=== PATIENT | male | born 1935 | race Caucasian/White ===

== ENCOUNTER 2019-12-24 17:13 | Emergency (ER) | payer MEDICARE, MEDICAID, SELFPAY ==
[2019-12-24] VITALS (16 sets, daily range): BP systolic 122–175; BP diastolic 32–97; PULSE 66–109; RESP 16–20; TEMP 36.5–36.6; O2SAT 94–100; BMI 22.1
--- NOTE | 2019-12-24 17:28 | ED_ITS ---
HPI - Altered Mental Status General Chief Complaint: Altered Mental Status Stated Complaint: AMS Time Seen by Provider: 12/24/19 17:27 Source: EMS Mode of arrival: EMS Limitations: altered mental status History of Present Illness HPI narrative: patient brought by EMS for increased confusion and combativeness apparently patient lives alone and [employer] people found him increased confused in unkept condition at home, details not available no signs of injury/trauma MD complaint: altered mental status Related Data Home Medications Medication Instructions Recorded Confirmed doxazosin 2 mg PO BEDTIME 12/24/19 12/24/19 levothyroxine 50 mcg PO DAILY 12/24/19 12/24/19 lisinopril 5 mg PO DAILY 12/24/19 12/24/19 metoprolol tartrate 25 mg PO BID 12/24/19 12/24/19 Allergies Allergy/AdvReac Type Severity Reaction Status Date / Time No Known Allergies Allergy Verified 12/24/19 17:26 Review of Systems Review of Systems: Yes Unobtainable due to mental status PMFSH Past Medical History Medical History HTN (hypertension) Social History Social History Alcohol intake: unknown Smoking Status: Unknown if ever smoked Use of substances other than those prescribed or required for medical reasons: Unknown Advance Directives: No (AMS) Advance Directives Information Provided: No (AMS) Physical Exam Vital Signs: Vital Signs: Vital Signs Temp Pulse Resp BP Pulse Ox 12/24/19 22:04 70 16 95 12/24/19 22:00 69 16 122/58 L 95 12/24/19 21:49 67 16 124/57 L 96 12/24/19 21:34 66 16 127/32 L 96 12/24/19 21:19 97.9 F 74 20 148/76 H 96 12/24/19 21:04 97.7 F 76 16 168/78 H 97 12/24/19 21:00 85 16 129/75 95 12/24/19 20:45 90 16 147/81 H 96 12/24/19 20:30 91 16 12/24/19 20:22 77 16 127/67 97 12/24/19 20:15 16 12/24/19 20:05 109 H 18 151/78 H 12/24/19 20:00 18 12/24/19 19:45 99 18 157/82 H 94 12/24/19 18:17 87 19 173/86 H 97 12/24/19 17:18 97.9 F 85 18 175/97 H 100 Body Mass Index 22.1 Appearance: Alert. Oriented X2 No acute distress. confused at baseline asking to go back to his apartment Eyes: Pupils equal, round and reactive to light. ENT: Pharynx normal. Neck: Normal inspection. Neck supple. CVS: Normal heart rate and rhythm. Pulses normal. Respiratory: No respiratory distress. Breath sounds normal. Abdomen: Soft and nontender. Skin: Skin warm and dry. Normal skin color. Normal skin turgor. Extremities: No lower extremity edema. Good range of movement Neuro: Oriented X 2. No motor deficit. No sensory deficit. no pronator drift Course Course Course Narrative: case discussed with patient's sister Lissy Weber [phone] who lives in [place] and is health proxy. She has not seen him for last 10 years. According to her patient does live alone and has a history of schizophrenia and psychosis and feels that he needs to go to assiting living place/ intermediate 0050 : patient is sleeping at this time signed out to Dr. Smith plan to place in intermediate in morning MDM - Altered Mental Status Differential Diagnosis Differential diagnosis: Likely altered mental status, dementia, hypoglycemia, hyponatremia, renal failure and seizures Lab Data Result diagrams: 12/24/19 18:14 12/24/19 18:14 Labs: Lab Results 12/24/19 12/24/19 12/24/19 Range/Units 18:14 18:14 19:15 WBC 7.1 (4.8-10.8) X10*3/uL RBC 3.74 L (4.60-5.80) X10*6/uL Hgb 11.6 L (14.0-18.0) g/dl Hct 34.6 L (42-52) % MCV 92.5 (80-98) fL MCH 31.0 (27.0-33.0) pg MCHC 33.5 (31.0-36.0) g/dl RDW 12.6 (11.0-16.0) % Plt Count 167 (160-400) X10*3/uL MPV 9.5 (9.4-12.4) fL Immature Gran % (Auto) 0.8 H (0.0-0.4) % Neut % (Auto) 66.7 (45-73) % Lymph % (Auto) 13.6 L (20-40) % [place] % (Auto) 11.8 H (2-11) % Eos % (Auto) 6.7 H (0-4) % Baso % (Auto) 0.4 (0-2) % Lymph # (Auto) 1.0 L (1.2-4.9) X10*3/uL [place] # (Auto) 0.8 (0.1-1.2) X10*3/uL Eos # (Auto) 0.5 H (0.0-0.4) X10*3/uL Baso # (Auto) 0.0 (0.0-0.2) X10*3/uL Abs Immat Gran (auto) 0.06 H (0.00-0.03) X10*3/uL Absolute Neuts (auto) 4.8 (2.0-8.3) X10*3/uL Absolute Nucleated RBC 0.000 (0.0-0.012) X10*3/uL Nucleated RBC % (auto) 0.0 (0.0-0.2) /100WBC Sodium 133 L (135-145) mmol/L Potassium 4.7 (3.3-5.1) mmol/l Chloride 100 (96-108) mmol/L Carbon Dioxide 26 (22-29) mmol/L Anion Gap 12 (12-20) BUN 32 H (9-16) mg/dL Creatinine 0.77 (0.5-1.4) mg/dL Estim Creat Clear Calc 76.0 Estimated GFR > 60 Random Glucose 95 (60-115) mg/dL Calcium 8.9 (8.4-10.2) mg/dL Urine Color YELLOW Urine Appearance CLEAR Urine pH 6.5 (5.0-8.0) Ur Specific [place] 1.015 (1.005-1.025) Urine Protein NEG (NEG-TRACE) MG/DL Urine Glucose (UA) NEG (NEG) MG/DL Urine Ketones NEG (NEG) MG/DL Urine Blood 1+ H (NEG) Urine Nitrite NEG (NEG) Ur Leukocyte Esterase NEG (NEG) Urine RBC 0-2 (0) /HPF Urine WBC 0 (0-4) /HPF Ur Squamous Epith Cells 1+ /LPF Urine Crystals TRACE /LPF Urine Bacteria NONE /LPF Coronavirus (PCR) (Negative) 12/24/19 Range/Units 20:10 WBC (4.8-10.8) X10*3/uL RBC (4.60-5.80) X10*6/uL Hgb (14.0-18.0) g/dl Hct (42-52) % MCV (80-98) fL MCH (27.0-33.0) pg MCHC (31.0-36.0) g/dl RDW (11.0-16.0) % Plt Count (160-400) X10*3/uL MPV (9.4-12.4) fL Immature Gran % (Auto) (0.0-0.4) % Neut % (Auto) (45-73) % Lymph % (Auto) (20-40) % [place] % (Auto) (2-11) % Eos % (Auto) (0-4) % Baso % (Auto) (0-2) % Lymph # (Auto) (1.2-4.9) X10*3/uL [place] # (Auto) (0.1-1.2) X10*3/uL Eos # (Auto) (0.0-0.4) X10*3/uL Baso # (Auto) (0.0-0.2) X10*3/uL Abs Immat Gran (auto) (0.00-0.03) X10*3/uL Absolute Neuts (auto) (2.0-8.3) X10*3/uL Absolute Nucleated RBC (0.0-0.012) X10*3/uL Nucleated RBC % (auto) (0.0-0.2) /100WBC Sodium (135-145) mmol/L Potassium (3.3-5.1) mmol/l Chloride (96-108) mmol/L Carbon Dioxide (22-29) mmol/L Anion Gap (12-20) BUN (9-16) mg/dL Creatinine (0.5-1.4) mg/dL Estim Creat Clear Calc Estimated GFR Random Glucose (60-115) mg/dL Calcium (8.4-10.2) mg/dL Urine Color Urine Appearance Urine pH (5.0-8.0) Ur Specific [place] (1.005-1.025) Urine Protein (NEG-TRACE) MG/DL Urine Glucose (UA) (NEG) MG/DL Urine Ketones (NEG) MG/DL Urine Blood (NEG) Urine Nitrite (NEG) Ur Leukocyte Esterase (NEG) Urine RBC (0) /HPF Urine WBC (0-4) /HPF Ur Squamous Epith Cells /LPF Urine Crystals /LPF Urine Bacteria /LPF Coronavirus (PCR) NEGATIVE (Negative) Discharge Plan Discharge Prescriptions: No Action levothyroxine 50 mcg tablet 50 mcg PO DAILY RF: 0 lisinopril 5 mg tablet 5 mg PO DAILY RF: 0 doxazosin 2 mg tablet 2 mg PO BEDTIME RF: 0 metoprolol tartrate 25 mg tablet 25 mg PO BID RF: 0
--- NOTE | 2019-12-24 17:34 | ECG_ITS ---
Test Reason : AMS Blood Pressure : / mmHG Vent. Rate : 080 BPM Atrial Rate : 080 BPM P-R Int : 216 ms QRS Dur : 100 ms QT Int : 378 ms P-R-T Axes : 090 011 056 degrees QTc Int : 435 ms Sinus rhythm with sinus arrhythmia with 1st degree A-V block Incomplete right bundle branch block Borderline ECG No previous ECGs available Referred By: Alfonso Membreno Electronically Signed By:PARMJIT COTTO MD
--- NOTE | 2019-12-24 17:35 | XR_ITS ---
EXAMINATION: XR CHEST CLINICAL INFORMATION: Altered mental status COMPARISON: None TECHNIQUE: Frontal view of the chest was obtained. FINDINGS: Cardiac silhouette is mildly enlarged. Patient is status post valvular replacement. The lungs are adequately aerated. There is prominence of the central pulmonary vasculature and diffuse coarsening of the interstitial markings, nonspecific. Subtle opacity of the lateral left lung base, nonspecific. No pleural effusion. No pneumothorax. XR/XR chest 1V IMPRESSION: There is prominence of the central pulmonary vasculature and diffuse coarsening of the interstitial markings which although nonspecific are likely related to chronic changes. Unfortunately there is no prior imaging available for comparison. Subtle opacity of the lateral left lung base is nonspecific and may represent atelectasis versus pulmonary nodule. This can be further evaluated with cross-sectional imaging as clinically indicated.
--- NOTE | 2019-12-24 17:35 | CT_ITS ---
EXAMINATION: NONCONTRAST HEAD CT INDICATION INFORMATION: Altered mental status COMPARISON: None TECHNIQUE: Noncontrast CT of the head was performed from the skull base to the vertex. Soft tissue and bony algorithms were evaluated. Coronal and sagittal images were created at the technologist workstation. This CT examination was performed using dose optimization techniques as appropriate, variously including the following: *Automated exposure control *Adjustment of mA and/or kV according to patient size (this includes techniques or standardized protocols for targeted exams where dose is matched to indication/reason for exam; i.e. extremities or head) *Use of iterative reconstruction technique DLP: 855 mGy-cm FINDINGS: There is no evidence of acute intracranial hemorrhage or territorial infarction. No abnormal mass effect or midline shift is appreciated. Mcghee-white differentiation is well preserved. No extra-axial fluid collections. The ventricular system and cortical sulci are prominent, most consistent with volume loss. Mild cerebellar volume loss is also appreciated. There are areas of low density in the periventricular and subcortical white matter, most consistent with sequelae of microvascular ischemic change. The osseous structures and soft tissues are normal. There are calcifications of the cavernous internal carotid arteries. The visualized paranasal sinuses and mastoid air cells are well aerated. CT/CT head/brain wo con IMPRESSION: -No CT evidence for acute intracranial abnormality. -Microvascular ischemic changes. -Prominence of the ventricular system and cortical sulci, most suggestive of volume loss. Dilatation of the ventricles may be slightly out of proportion to the cortical sulci prominence raising the possibility for normal pressure hydrocephalus. Clinical correlation is recommended.
[2019-12-24] MEDS: 0.9 % Sodium Chloride 1,000 ML 999 ML IVCONT (18:16)
[2019-12-24 18:18] LABS: MANUAL DIFF FLAG NO
--- NOTE | 2019-12-24 18:23 | PC.NURSE ---
Pt continuously attempting to get oob, pulling at medical devices, asking to go home but is easily redirectable. sitter placed at bedside for safety
[2019-12-24 18:24] LABS: Basophils Percent Auto 0.4 % (0-2); Eosinophils Absolute Auto 0.5 X10*3/uL (0.0-0.4); Eosinophils Percent Auto 6.7 % (0-4); Hematocrit 34.6 % (42-52); Hemoglobin 11.6 g/dl (14.0-18.0); Imm Gran Abs Auto 0.06 X10*3/uL (0.00-0.03); Imm Gran Pct Auto 0.8 % (0.0-0.4); Lymphocytes Percent Auto 13.6 % (20-40); Mean Corpuscular HGB Conc 33.5 g/dl (31.0-36.0); Mean Corpuscular Volume 92.5 fL (80-98); Mean Platelet Volume 9.5 fL (9.4-12.4); Monocytes Absolute Auto 0.8 X10*3/uL (0.1-1.2); Monocytes Percent Auto 11.8 % (2-11); Neutrophils Absolute Auto 4.8 X10*3/uL (2.0-8.3); Neutrophils Percent Auto 66.7 % (45-73); Platelet Count 167 X10*3/uL (160-400); Red Blood Count 3.74 X10*6/uL (4.60-5.80); Red Cell Distribution Width 12.6 % (11.0-16.0); White Blood Count 7.1 X10*3/uL (4.8-10.8)
[2019-12-24 18:58] LABS: Anion Gap 12 (12-20); Blood Urea Nitrogen 32 mg/dL (9-16); Calcium 8.9 mg/dL (8.4-10.2); Carbon Dioxide 26 mmol/L (22-29); Chloride 100 mmol/L (96-108); Estimated Glomerular Filt Rate > 60; Glucose Random 95 mg/dL (60-115); Potassium 4.7 mmol/l (3.3-5.1); Sodium 133 mmol/L (135-145)
[2019-12-24] MEDS: LORazepam 1 MG TABLET PO (19:17)
--- NOTE | 2019-12-24 19:19 | PC.NURSE ---
IV removed per physician. Pt eating pudding at this time. voided via urinal. Ativan administered per order. Plan is for case management in morning
[2019-12-24 19:23] LABS: Appearance Urine CLEAR; Color Urine YELLOW; Glucose Urine UA NEG (NEG); Leukocyte Esterase Urine NEG (NEG); Nitrite Urine NEG (NEG); PH 6.5 (5.0-8.0); Specific Gravity - Urine 1.015 (1.005-1.025); Urine Blood 1+ (NEG); Urine Ketones NEG (NEG); Urine Protein NEG (NEG-TRACE)
[2019-12-24 19:28] LABS: RBC Urine 0-2 /HPF (0); Squamous Epithelial Cell Urine 1+ /LPF; Urine Talc Crystals TRACE /LPF; WBC Urine 0 /HPF (0-4)
[2019-12-24] MEDS: diphenhydrAMINE HCL 50 MG/ML VIAL IM (19:39)
[2019-12-24] MEDS: Haloperidol Lactate 5 MG/ML VIAL 2 MG IM (19:58)
[2019-12-24 21:20] LABS: SARS COV2 PCR INHOUSE NEGATIVE (Negative)
--- NOTE | 2019-12-24 23:22 | PC.NURSE ---
pt in bed, sleeping, given im injection around 8 pm tonight for the start of a combative situation
[2019-12-25] VITALS (13 sets, daily range): BP systolic 101–156; BP diastolic 58–77; PULSE 58–70; RESP 14–18; TEMP 36.5–37.2; O2SAT 95–99
--- NOTE | 2019-12-25 02:16 | PC.NURSE ---
pt gievn snack and drink. pt vitals wnl. pt urinated about 400 cc of urine. pt then threw drinks and food at nurses.
--- NOTE | 2019-12-25 04:48 | PC.NURSE ---
pt up trying to walk around and put clothes on, at this time hard to redirect. being combative. changed to hospital bed for comfort, given juice. nad noted otherwise
--- NOTE | 2019-12-25 06:44 | PC.NURSE ---
pt got up and walked to bathroom with one assist. vitals wnl.
[2019-12-25] MEDS: Levothyroxine Sodium 50 MCG TABLET PO (08:58)
[2019-12-25] MEDS: Metoprolol Tartrate 25 MG TABLET PO (08:58)
[2019-12-25] MEDS: lisinopriL 5 MG TABLET PO (08:59)
--- NOTE | 2019-12-25 10:00 | MHC.CM.ED ---
Received consult. EMS called by [facility] stating confusion and agitation, house was unkept. Transported to ED last evening. Given haldol IM on 12/23 at 1952 and po ativan on 12/23 at 1859 for increasing agitation, unable to re-direct. Spoke with Cindy, talent development consultant at [facility] ext. [phone]). She states that pt. has been declining cognitively and physically since July. Has become more forgetful, has daily incontinence and has begun using a cane. States normally he is very neat and clean. Only has [facility] for services; has declined homemaker services for past year. Received last office visit and medication update from PCP Dr. Mesfin Amin ([phone]). Noted to have regular office visits and manages medications. Physical Therapy consult ordered due to cane use at home and to assess for safety. HCP Lissy Weber(sister) [phone]. Per record has not seen brother in 10 years. Support person per [facility] Rev. Tea Elizabeth [phone]. Attempted to meet with pt., but unable to wake, despite calling his name and gentle touch. Will try to meet when more awake. Awaiting PT evaluation. Updated MD Smith regarding conversation with Cindy at [facility]. Will continue to follow for D/C needs.
--- NOTE | 2019-12-25 13:27 | MHC.CM.ED ---
Spoke with sister and HCP, Lissy Weber ([phone]). Aware of brother being in ED. Spoke with MD yesterday. Per Lissy, pt. has long history of behaviors dating back to 1973, when he was hospitalized at [facility] in [facility] for paranoid issues. Per Lissy, this episodes have occurred throughout pt's adult life, but he was only hospitalized once. Pt. has not held a regular job, but has a graduate degree and is very intelligent . 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 Pt. lived with his parents from 1976 until 2011, when he moved into his current residence. Lissy tells me her brother could not care for the home after her parents , and it fell into disrepair. Neighbors called the police about the living situation. Lissy feels her brother would be best cared for in a [place], as she fears he is unable to care for himself. Lissy made aware that would be looking for a safe D/C for her brother. Will broadcast via [facility] for STR/LTC. Will update Lissy tomorrow and review options with her. Lissy agreeable to this plan. Will continue to monitor for D/C needs.
--- NOTE | 2019-12-25 13:39 | MHC.CM.ED ---
Broadcasted within 20 mile radius for STR/LTC. Met with patient. Easily awakened. Would only answer YES or NO to direct questions. Pt is not oriented to place or time. When asked if patient feels he can care for himself, he said no. Unsure if patient has an understanding of questions. Spoke with Albert MAYORGA, who has had the same interactions with this patient.
--- NOTE | 2019-12-25 14:40 | MHC.CM.ED ---
Received call from Brittnee Spring ([phone]. [phone]) at [facility] regarding self neglect report on Pt. Reviewed pt. stay in ED and our concerns that he is not safe to return home at this time. Aware of IM Tiffanie and Broadcast[facility] within 20 miles for STR/LTC, with probable LTC placement. Elder services requests notifcation of D/C plan prior to discharge to facility. No beds available at this point.
--- NOTE | 2019-12-25 16:29 | MHC.CM.ED ---
No bed offers have been made. Referral broadcasted within 40 miles of patient's address. Continue to monitor for d/c needs.
[2019-12-26] VITALS (13 sets, daily range): BP systolic 135–187; BP diastolic 71–113; PULSE 58–83; RESP 15–16; TEMP 36.4–36.9; O2SAT 95–99
[2019-12-26] MEDS: lisinopriL 5 MG TABLET PO (09:39)
[2019-12-26] MEDS: Levothyroxine Sodium 50 MCG TABLET PO (09:40)
[2019-12-26] MEDS: Metoprolol Tartrate 25 MG TABLET PO ×2 (09:40→20:16)
--- NOTE | 2019-12-26 09:46 | MHC.CM.ED ---
Patient remains in ER. No behavior issues overnight. Clinical updates sent to all facilities still following patient. Continue to monitor for d/c needs.
--- NOTE | 2019-12-26 10:25 | MHC.CM.ED ---
Patient has a history of OCD, depression and paranoia. Will need abbrevated PASRR screen. Leval 1 PASRR screen completed and faxed to [facility]. Continue to monitor for d/c needs.
--- NOTE | 2019-12-26 14:51 | MHC.CM.ED ---
Spoke with patient's sister/HCP, Lissy via telephone. Explained placement has not been obtained. Anticipate patient will be in the ER over the weekend. Lissy verbalized understanding. Continue to monitor for d/c needs.
--- NOTE | 2019-12-26 18:31 | PC.NURSE ---
PATIENT GIVEN DINNER AND PATIENT EATING DINNER WITHOUT ISSUE
[2019-12-26] MEDS: OLANZapine 5 MG TABLET PO (20:17)
[2019-12-26] MEDS: Doxazosin Mesylate 2 MG TABLET PO (22:16)
[2019-12-27] VITALS (13 sets, daily range): BP systolic 103–156; BP diastolic 66–76; PULSE 53–70; RESP 15–20; TEMP 36.8–36.9; O2SAT 96–99
--- NOTE | 2019-12-27 06:09 | PC.NURSE ---
PATIENT HAD A DECENT NIGHT. PATIENT TOOK ALL OF HIS MEDICATION WITHOUT ANY ISSUE. RESPIRATORY RATE EQUAL AND UNLABORED. SKIN WPD. PATIENT IS CASE MANAGEMENT.
[2019-12-27] MEDS: lisinopriL 5 MG TABLET PO (09:31)
[2019-12-27] MEDS: Metoprolol Tartrate 25 MG TABLET PO ×2 (09:31→20:46)
[2019-12-27] MEDS: Levothyroxine Sodium 50 MCG TABLET PO (09:32)
--- NOTE | 2019-12-27 18:15 | PC.NURSE ---
patient up and eating dinner. beforehand patient brought to bedside commode. offers no complaints at this time.
[2019-12-27] MEDS: OLANZapine 5 MG TABLET PO (18:27)
[2019-12-27] MEDS: Doxazosin Mesylate 2 MG TABLET PO (20:47)
[2019-12-28 06:14] VITALS: BP 108/74; PULSE 61; RESP 16; TEMP 36.4; O2SAT 94
--- NOTE | 2019-12-28 06:48 | PC.NURSE ---
report taken from kimberley flores pt appears to be sleeping in bed, rr even/unlabored. awaiting breakfast. 1:[address] for safety[address] aj.
[2019-12-28 09:07] VITALS: BP 103/67; PULSE 67
[2019-12-28] MEDS: Metoprolol Tartrate 25 MG TABLET PO ×2 (09:07→21:12)
[2019-12-28] MEDS: Levothyroxine Sodium 50 MCG TABLET PO (09:07)
[2019-12-28 09:08] VITALS: BP 103/67; PULSE 67
[2019-12-28] MEDS: lisinopriL 5 MG TABLET PO (09:08)
--- NOTE | 2019-12-28 15:14 | PC.NURSE ---
pt continues to rest in bed, rr even unlabored. no wandering out of bed today. wctm for dc needs.
[2019-12-28] MEDS: OLANZapine 5 MG TABLET PO (17:11)
[2019-12-28 19:43] VITALS: BP 111/61; PULSE 73; RESP 16; TEMP 36.5; O2SAT 98
[2019-12-28 20:04] VITALS: BP 108/60; PULSE 72; RESP 16; TEMP 36.4; O2SAT 97
--- NOTE | 2019-12-28 20:07 | PC.NURSE ---
pt awake and alert, ambulatory to commode to void 20 minutes ago.
[2019-12-28] MEDS: Doxazosin Mesylate 2 MG TABLET PO (21:11)
[2019-12-28 21:12] VITALS: BP 108/60; PULSE 72
[2019-12-29] VITALS (7 sets, daily range): BP systolic 120–157; BP diastolic 68–95; PULSE 69–82; RESP 16–98; TEMP 36.4; O2SAT 98–99
[2019-12-29 03:27] LABS: Glucose Urine UA NEG (NEG); Leukocyte Esterase Urine NEG (NEG); Nitrite Urine NEG (NEG); Specific Gravity - Urine 1.025 (1.005-1.025); Urine Blood TRACE (NEG); Urine Ketones NEG (NEG); Urine Protein NEG (NEG-TRACE)
[2019-12-29 03:31] LABS: Appearance Urine CLEAR; Color Urine YELLOW
[2019-12-29 03:35] LABS: Bacteria Urine TRACE /LPF; Squamous Epithelial Cell Urine 1+ /LPF; WBC Urine 0-2 /HPF (0-4)
[2019-12-29] MEDS: diphenhydrAMINE HCL 25 MG TABLET PO (03:45)
--- NOTE | 2019-12-29 03:46 | PC.NURSE ---
pt was able to void aprox 200-300 ml urine, improved output while in a standing position. pt out of bed, unable to redirect. pt over end of bed to standing position and ambulatory around er for 3rd time. pt agitated, and would not let go of my hand. pt medicated with po benadryl in pudding.
[2019-12-29] MEDS: OLANZapine 2.5 MG TABLET PO ×2 (04:02→12:12)
--- NOTE | 2019-12-29 06:33 | PC.NURSE ---
pt has been sleeping for past 90 minutes.
[2019-12-29] MEDS: Levothyroxine Sodium 50 MCG TABLET PO (09:07)
[2019-12-29] MEDS: lisinopriL 5 MG TABLET PO (09:07)
[2019-12-29] MEDS: Metoprolol Tartrate 25 MG TABLET PO ×2 (09:08→20:20)
--- NOTE | 2019-12-29 09:51 | MHC.CM.ED ---
Patient remains in ER. Clinical updates sent to all facilities still following patient. Patient is still having periods of agitation. Pratima West has been consulted for medication recommendations. Continue to monitor for d/c needs.
--- NOTE | 2019-12-29 10:52 | MHC.CM.ED ---
PASRR letter obtained from [facility]. Scanned into [employer] and placed in chart. Continue to monitor for d/c needs.
--- NOTE | 2019-12-29 11:56 | PC.NURSE ---
patient alert, agitated, patient was attempting to climb out of bed and is yelling, this nurse helped the patient get oob and ambulated him around the ED, patient ambulated with assist. provider aware of patients behavior at this time-no new orders given, will continue to monitor.
--- NOTE | 2019-12-29 12:13 | PC.NURSE ---
patients agitation continued, ambulated patient x2 around the ED, medicated patient per order, will continue to monitor.
--- NOTE | 2019-12-29 12:19 | PM.PSYCN ---
History of Present Illness Chief Complaint: AMS Reason for Consult: medication evaluation Requesting physician: Margaret Pedro Discussed with referring provider: Yes Sources of Information: patient interviewed and chart reviewed HPI Narrative: Pt is an 84 year old male who is currently in ED awaiting SNF placement. He presented to the ED after agency that provides home delivered meals found patient to be confused and noted home was in disarray and unkempt. While in ED patient has had some episodes of agitation that have required IM medication administration. Head CT showed microvascular ischemic changes and volume loss Pt seen in room 10 of ED, pt unable to provide any history--unable to answer any questions appropriately. Pt displaying some echolalia--repeating what he was hearing others in the ED saying. Chart review shows that his sister reports he has a history of psychiatric admission many years ago in [place]. Sister also reports that pt had several episodes over the years, but no other hospitalizations that she is aware of. He resided with his parents until they passed and he was unable to care for their home and ended up in his current residence. Sister reports she has had concerns about patient being able to care for himself and feels he is no longer able to. Past Psychiatric History: per sister: one psychiatric admission many years ago Medical Evaluation Reviewed: Yes Review of Systems Review of Systems Yes Unobtainable due to mental status [facility] Medical History (Updated 12/29/19 @ 15:36 by Pratima West CNP) HTN (hypertension) Scrotal hernia Diagnostics Vital Signs (24Hr): Vital Signs - 24 hr 12/28/19 19:43 12/28/19 20:04 12/28/19 21:12 Temperature 97.7 F 97.5 F Pulse Rate 73 72 72 Respiratory Rate 16 16 Blood Pressure 111/61 108/60 108/60 Pulse Oximetry 98 97 12/29/19 07:32 12/29/19 09:07 12/29/19 09:08 Temperature Pulse Rate 69 82 82 Respiratory Rate 18 Blood Pressure 135/71 120/68 120/68 Pulse Oximetry 99 12/29/19 09:09 12/29/19 11:55 Temperature 97.6 F Pulse Rate 82 69 Respiratory Rate 16 98 H Blood Pressure 120/68 157/95 H Pulse Oximetry 99 98 Body Mass Index 22.1 Labs Results: 12/29/19 14:34 12/29/19 14:34 Labs: Laboratory Results - last 48 hr 12/29/19 03:21 Urine Color YELLOW Urine Appearance CLEAR Urine pH 6.0 Ur Specific [place] 1.025 Urine Protein NEG Urine Glucose (UA) NEG Urine Ketones NEG Urine Blood TRACE Urine Nitrite NEG Ur Leukocyte Esterase NEG Urine RBC 1-4 Urine WBC 0-2 Ur Squamous Epith Cells 1+ Urine Bacteria TRACE Imaging Radiology Impressions: ITS Impressions Chest X-Ray 12/24/19 17:35 IMPRESSION: There is prominence of the central pulmonary vasculature and diffuse coarsening of the interstitial markings which although nonspecific are likely related to chronic changes. Unfortunately there is no prior imaging available for comparison. Subtle opacity of the lateral left lung base is nonspecific and may represent atelectasis versus pulmonary nodule. This can be further evaluated with cross-sectional imaging as clinically indicated. Head CT 12/24/19 17:35 IMPRESSION: -No CT evidence for acute intracranial abnormality. -Microvascular ischemic changes. -Prominence of the ventricular system and cortical sulci, most suggestive of volume loss. Dilatation of the ventricles may be slightly out of proportion to the cortical sulci prominence raising the possibility for normal pressure hydrocephalus. Clinical correlation is recommended. Mental Status Exam Mental Status Exam Level of Consciousness: Awake and Disoriented Patient Behavior: Confused Mood Description: Calm Affect Description: Calm Patient Cognition Impaired: Yes Thought Process: Confusion Thought Content: positive for Disorganized Judgement: Poor Medications Medications Current Medications Generic Name Dose Route Start Last Admin Trade Name Freq PRN Reason Stop Dose Admin Doxazosin Mesylate 2 mg 12/25/19 21:00 12/28/19 21:11 Doxazosin Mesylate 2 Mg Tablet PO 2 mg BEDTIME YUKI Administration Protocol Levothyroxine Sodium 50 mcg 12/25/19 09:00 12/29/19 09:07 Levothyroxine Sodium 50 Mcg Tablet PO 50 mcg DAILY YUKI Administration Lisinopril 5 mg 12/25/19 09:00 12/29/19 09:07 Lisinopril 5 Mg Tablet PO 5 mg DAILY YUKI Administration Protocol Metoprolol Tartrate 25 mg 12/25/19 09:00 12/29/19 09:08 Metoprolol Tartrate 25 Mg Tablet PO 25 mg BID YUKI Administration Protocol Olanzapine 5 mg 12/26/19 20:00 12/28/19 17:11 Olanzapine 5 Mg Tablet PO 5 mg DAILY@1700 [facility] Administration Pharmacy Consult 1 each 12/24/19 19:43 Consult Rx Perform Med Rec MISCELLANE ONCE PRN Consult order Allergies Allergies Allergy/AdvReac Type Severity Reaction Status Date / Time No Known Allergies Allergy Verified 12/24/19 17:26 Assessment & Plan Assessment & Plan (1) Altered mental status: Status: Acute Code(s): R41.82 - Altered mental status, unspecified Recommendations: consider trazodone 12.5mg BID PRN for anxiety/restlessness Zyprexa 5mg QD was previously started by ED provider, can continue for now and reassess by outpt psychiaatric provider Greater than 50% of the session was spent on counseling and/or coordination of care
--- NOTE | 2019-12-29 14:17 | PC.NURSE ---
patient ambulating to bathroom with staff
[2019-12-29 14:41] LABS: Basophils Percent Auto 0.5 % (0-2); Eosinophils Absolute Auto 0.8 X10*3/uL (0.0-0.4); Eosinophils Percent Auto 10.5 % (0-4); Hematocrit 40.8 % (42-52); Hemoglobin 13.5 g/dl (14.0-18.0); Imm Gran Abs Auto 0.08 X10*3/uL (0.00-0.03); Imm Gran Pct Auto 1.1 % (0.0-0.4); Lymphocytes Absolute Auto 1.4 X10*3/uL (1.2-4.9); Lymphocytes Percent Auto 18.4 % (20-40); Mean Corpuscular HGB Conc 33.1 g/dl (31.0-36.0); Mean Corpuscular Hemoglobin 30.7 pg (27.0-33.0); Mean Corpuscular Volume 92.7 fL (80-98); Mean Platelet Volume 9.6 fL (9.4-12.4); Monocytes Absolute Auto 0.9 X10*3/uL (0.1-1.2); Monocytes Percent Auto 11.3 % (2-11); Neutrophils Absolute Auto 4.4 X10*3/uL (2.0-8.3); Neutrophils Percent Auto 58.2 % (45-73); Platelet Count 176 X10*3/uL (160-400); Red Cell Distribution Width 12.3 % (11.0-16.0); White Blood Count 7.5 X10*3/uL (4.8-10.8)
[2019-12-29 14:42] LABS: MANUAL DIFF FLAG NO
[2019-12-29 15:11] LABS: Anion Gap 12 (12-20); Blood Urea Nitrogen 22 mg/dL (9-16); Calcium 8.5 mg/dL (8.4-10.2); Carbon Dioxide 28 mmol/L (22-29); Chloride 102 mmol/L (96-108); Creatinine Clr Calc Pharmacy 64.3; Estimated Glomerular Filt Rate > 60; Glucose Random 79 mg/dL (60-115); Potassium 4.2 mmol/l (3.3-5.1); Sodium 138 mmol/L (135-145)
--- NOTE | 2019-12-29 15:56 | PC.NURSE ---
patient ambulated with assist to bathroom and patient walked perimeter of ED with assist.
--- NOTE | 2019-12-29 16:42 | PC.NURSE ---
patients sister called to see how patient was doing, sisters name is lili rodas [phone]
[2019-12-29] MEDS: OLANZapine 5 MG TABLET PO (17:23)
--- NOTE | 2019-12-29 19:28 | PC.NURSE ---
patient ambulated with this nurse 1x around the ED halls, patient now eating dinner as he didnt want to eat earlier, will continue to monitor.
[2019-12-29] MEDS: Doxazosin Mesylate 2 MG TABLET PO (20:20)
--- NOTE | 2019-12-29 21:44 | PC.NURSE ---
patient currently sleeping, prior to falling asleep patient was ambulated to the bathroom then ambulated around the the ED, no c/o pain or discomfort, will continue to monitor.
--- NOTE | 2019-12-29 23:00 | PC.NURSE ---
PATIENT IS CALM/COOPERATIVE AT THIS TIME, RESTING COMFORTABLY IN BED. RESPIRATIONS EVEN & UNLABORED. SITTER REMAINS AT BEDSIDE. TIERRA GARCIA ASSUMES CARE OF THIS PATIENT. NURSE TO NURSE REPORT RECEIVED FROM TIERRA HOLLINGSWORTH. WILL CONTINUE TO MONITOR.
[2019-12-30] VITALS (8 sets, daily range): BP systolic 104–130; BP diastolic 52–73; PULSE 59–65; RESP 16–18; TEMP 36.5–36.9; O2SAT 97–100
[2019-12-30] MEDS: lisinopriL 5 MG TABLET PO (08:04)
[2019-12-30] MEDS: Levothyroxine Sodium 50 MCG TABLET PO (08:04)
[2019-12-30] MEDS: Metoprolol Tartrate 25 MG TABLET PO (08:06)
--- NOTE | 2019-12-30 11:49 | PC.NURSE ---
patient currently sleeping, will obtain vitals upon waking
--- NOTE | 2019-12-30 16:05 | MHC.CM.ED ---
Patient remains in Er. Required PRN benedryal last night. Placement has not been obtained yet. Continue to monitor for d/c needs.
--- NOTE | 2019-12-30 16:31 | PC.NURSE ---
patient awake, yelling out at times-redirectable, patient looking at a magazine and tv, denies pain/discomfort, will continue to monitor.
[2019-12-30] MEDS: OLANZapine 5 MG TABLET PO (16:39)
--- NOTE | 2019-12-30 20:53 | PC.NURSE ---
Per verbal order, metoprolol and cardua held due to bp 110/52
--- NOTE | 2019-12-30 21:00 | PC.NURSE ---
patient wakes to verbal stimulus, pt alert to his baseline, fell asleep this evening about 7pm after he was wrapped in warm blankets per his request, will continue to monitor.
--- NOTE | 2019-12-30 22:43 | PC.NURSE ---
patient currently sleeping, will continue to monitor
[2019-12-31] VITALS (8 sets, daily range): BP systolic 112–128; BP diastolic 59–78; PULSE 69–82; RESP 14–18; TEMP 36.4–36.7; O2SAT 96–98
[2019-12-31] MEDS: lisinopriL 5 MG TABLET PO (09:02)
[2019-12-31] MEDS: Levothyroxine Sodium 50 MCG TABLET PO (09:03)
[2019-12-31] MEDS: Metoprolol Tartrate 25 MG TABLET PO ×2 (09:03→20:51)
--- NOTE | 2019-12-31 15:26 | MHC.CM.ED ---
Patient remains in ER. Clinical updates sent to [facility]. Patient's sister/HCP, Lissy updated. Continue to monitor for d/c needs.
[2019-12-31] MEDS: OLANZapine 5 MG TABLET PO (16:34)
--- NOTE | 2019-12-31 19:39 | PC.NURSE ---
REPORT TAKEN FROM MAX MAYORGA. FIRST CONTACT WITH PT. RESTING IN BED EYES CLOSED, SKIN PWD RESPIRATIONS EVEN UNLABORED. CASE MANAGEMENT BEDSEARCH CONTINUES.
[2019-12-31] MEDS: Doxazosin Mesylate 2 MG TABLET PO (20:51)
--- NOTE | 2019-12-31 21:39 | PC.NURSE ---
PT CLEANED UP BY [facility] GOWN AND NEW BEDDING APPLIED. BACK TO BE RESTING QUIETLY. WILL CONTINUE TO MONITOR.
--- NOTE | 2019-12-31 23:21 | PC.NURSE ---
REPORT GIVEN TO KLAUS MAYORGA.
--- NOTE | 2020-01-01 01:54 | PC.NURSE ---
Patient in bed appears sleeping, no distress observed/reported, respiration +/=/non-labored bilaterally, will continue to monitor.
[2020-01-01 08:43] VITALS: BP 119/67; PULSE 69
[2020-01-01] MEDS: lisinopriL 5 MG TABLET PO (08:43)
[2020-01-01] MEDS: Levothyroxine Sodium 50 MCG TABLET PO (08:43)
[2020-01-01] MEDS: traZODone HCL 25 MG HALFTAB 12.5 MG PO (08:43)
[2020-01-01 08:44] VITALS: BP 119/67; PULSE 69
[2020-01-01] MEDS: Metoprolol Tartrate 25 MG TABLET PO (08:44)
--- NOTE | 2020-01-01 08:50 | PC.NURSE ---
PT CHANGED AND REPOSITIONED, NEEDS BEING MET. WAITING FOR BEDPLACEMENT.
[2020-01-01 11:59] VITALS: BP 152/71; PULSE 60; TEMP 36.9
--- NOTE | 2020-01-01 12:49 | MHC.CM.ED ---
Patient remains in ER. Clinical updates sent to [facility]. Left voicmail for May, [facility] liaison. Continue to monitor for d/c needs.
--- NOTE | 2020-01-01 14:07 | MHC.CM.ED ---
[facility] is able to offer a bed. They are requesting family sign patient in prior to admission. T/W requested liaison reach out to sister, Lissy. She is in [place] and is the HCP. Continue to monitor for d/c needs.
--- NOTE | 2020-01-01 14:51 | MHC.CM.ED ---
Spoke with Víctor. Sister/HCP, Lissy will have to give verbal consent via telephone when patient arrives at the facility and then she will have to sign consent. Lissy verbalized understanding. May aware. Patient can leave at 330pm. [facility] booked. Med nec with chart. Patient, Lissy, Opal FRANKLIN and Nancy Bermeo aware. Continue to monitor for d/c needs.
== END 2020-01-01 16:05 | disposition skilled nursing facility (03) ==
PROVIDERS: Nurse Practitioner Family; Student in an Organized Health Care Education/Training Program; Emergency Provider Internal Medicine
DX: R41.82 Altered mental status, unspecified (principal); F20.9 Schizophrenia, unspecified; I10 Essential (primary) hypertension; Z79.899 Other long term (current) drug therapy; Z20.828 Contact with and (suspected) exposure to other viral communicable diseases
CPT/HCPCS: 36415; 70450; 71045; 80048; 81001; 85025; 87635; 93005; 97161; 97162; 99283; 99285; J1200; Q0163